=== PATIENT | male | born 1945 | race Caucasian/White ===

== ENCOUNTER → 2018-08-02 09:56 | Outpatient (CLI) | payer MEDICARE, OTHER, SELFPAY ==
[2018-08-02] VITALS (10 sets, daily range): BP systolic 90–135; BP diastolic 44–90; PULSE 60–70; RESP 13–25; TEMP 36.5; O2SAT 87–98; BMI 30.4
--- NOTE | 2018-08-02 | ASPIGT_PTH ---
PATIENT: KEY RIBERA Jr. LOC: [place] U#:[id number] AGE/SX: 80/M ROOM: RE08/02/[address]: Dr. River Ventura MD : 1945 BED: DIS: SPEC #: [id number] RECD: 08/02/18 13:07 STATUS: ODALYS FLETCHER #: [id number] ALEX: 08/02/18 00:[address]: River Ventura DEPT: SURGICAL PATHOLOGY RECD BY: Osvaldo Liu ENTERED: 08/02/18 13:08 SP TYPE: ASP RAD OTHR DR: Dr. Sid Jordan MD Tissues: Lung, NOS Procedures: FNA Specimen Adequacy Special Stain Group II Surgery Specimen Level IV Diff Quik Stain (control) Imprint (control) HEADER OPERATION: CT-guided right lung biopsy PRE-OP DIAGNOSIS: Mass TISSUE SUBMITTED: Right lower lobe, superior segment, CT-guided core biopsy MICROSCOPIC DIAGNOSIS Mass of right lower lobe, superior segment of lung, needle core biopsy: Invasive squamous cell carcinoma. See Comment. AM:berta 08/05/18 COMMENT The specimen is evaluated at the time of biopsy by Dr. Blackwood. Immediate Evaluation = Malignant cells present derived from non-small cell carcinoma. Immunohistochemistry ([id number]) supports the above diagnosis. The tumor cells stain strongly for CK5-6 and p40. Clinical correlation is suggested. Case has been reviewed in consultation with Dr. Blackwood who concurs with the above diagnosis. IDC:SJ MICROSCOPIC DESCRIPTION Slides are reviewed. GROSS DESCRIPTION Received is one container labeled with the patient's name and not further designated. The specimen consists of multiple irregular and somewhat elongated fragments of light jj soft tissue that in aggregate measure 0.2 x 0.1 x <0.1 cm. The specimen is totally submitted in one cassette. / AM:berta 08/02/18 TC:0 CPT: 80645, 32022, 69608 ADDENDUM ADDENDUM ADDENDUM 08/08/2018 13:48 ADDENDUM 08/08/2018 13:48 ADDENDUM 08/08/2018 13:48 ADDENDUM 08/08/2018 13:48 ADDENDUM 08/23/2018 13:00 ADDENDUM 08/08/2018 13:48 This case was reviewed and diagnosis discussed with Dr. Ventura on 08/08/18 who ordered a PDL-1 on the tissue block. PD-L1 (KEYTRUDA) IMMUNOHISTOCHEMISTRY ANALYSIS FROM [facility] INTERPRETATION: Low expression Tumor proportion score: 30% Please see complete report in e-chart or EMR for complete details
--- NOTE | 2018-08-02 | IMM_PTH ---
PATIENT: KEY RIBERA Jr. LOC: CT U#:[id number] AGE/SX: 80/M ROOM: RE08/02/[address]: Dr. River Ventura MD : 1945 BED: DIS: SPEC #: [id number] RECD: 08/05/18 10:31 STATUS: ODALYS REQ #: [id number] ALEX: 08/02/18 00:[address]: River Ventura DEPT: IMMUNOHISTOCHEMISTRY RECD BY: Tamara Frances ENTERED: 08/05/18 10:32 SP TYPE: IMMUNO OTHR DR: Dr. Sid Jordan MD Tissues: Lung, NOS Procedures: NAPSIN A (add) CEA (add) CK20 (add) CK5-6 (add) CK8 (add) TTF1 (add) 34BE12 (add) P40 (add) CK7 (initial) PHYSICIAN & INSTITUTION [place] [id number] SPECIMEN INFORMATION: Tissue Source: Right lower lobe, superior segment, CT-guided core biopsy Clinical Info: Lung mass Specimen Number: [id number] CPT code: 98699, 76022 x8 METHODOLOGY: Deparaffinized sections of prefer/formalin-fixed tissue or PAP/DQ stained slides are incubated with monoclonal/polyclonal antibodies/oligonucleotide probes. Localization is made via biotin free immunoperoxidase method. Appropriate controls are performed and reacted as expected. Results on target cell population are indicated in the following table: RESULTS: ANTIBODY / CLONE RESULT CK7 (OV-TL12/30) negative CK8 (26iskxZ42) positive CK20 (KS20.8) negative 34BE12 (34BE12) positive TTF-1 (8G7G3/1) negative Napsin A (Rabbit Polyclonal) negative CEA (11-7/TF-3HB-1) positive, focal P40 (BC28) positive CK5-6 (D5 & 1684) positive These tests were developed and their performance characteristics determined by [facility]. They may not have been cleared or approved by the U.S. Food and Drug Administration. The FDA has determined that such clearance or approval is not necessary. INTERPRETATION: Right lower lobe, superior segment, CT-guided core biopsy: Invasive squamous carcinoma. GRANT:berta 08/06/18 Case has been reviewed in consultation with Dr. Blackwood who concurs with the above diagnosis. IDC:GRANT
--- NOTE | 2018-08-02 10:08 | CT_ITS ---
PROCEDURE: CT GUIDED CORE NEEDLE BIOPSY OF A nodule in the superior segment of the right lower lobe LUNG LESION INDICATION: Male, 73 years old. Right lower lobe mass PHYSICIAN: Dr. Lokesh WARREN CONSENT: Written informed consent was obtained having explained the risks, benefits and alternatives in detail with the patient who accepted the risks and agreed to proceed. Laboratory review and clinical assessment was performed. CONSCIOUS SEDATION PROTOCOL: The Drugs used were: 2 mg Versed, IV., and 50 mcg Fentanyl, IV. The sedation time was: 15 minutes. Conscious sedation was started 11:15 AM and terminated 11:30 AM. The conscious sedation protocol was independently monitored. RADIATION DOSAGE (If Supplied By Facility): CTDIvol = ( 18.2 ) mGy, DLP = ( 510.81 ) mGycm Individualized dose optimization techniques were used for this CT. TECHNIQUE: The patient was placed in the supine position. A noncontrast CT was performed to localize the lesion in the superior segment of the right lower lobe . The skin surface was prepped and draped in a sterile fashion. 1% lidocaine was used for local anesthesia. Using CT guidance, a 20-gauge coaxial biopsy device was advanced to the periphery of the lesion. A total of 4 core specimens were obtained. The specimens were placed in a formalin solution. A post procedure CT demonstrated no adverse sequelae or pneumothorax. The patient tolerated the procedure well without adverse event. A negative biopsy does not exclude malignancy. Further imaging or clinical followup based on patient condition and degree of clinical suspicion for malignancy. Suggest rebiopsy, if biopsy results do not match with clinical scenario. CT/Biopsy/Inj or Needle Placement IMPRESSION: 1. CT directed core needle biopsy of the right lower lobe lung lesion using CT image guidance with image documentation as described. Pathology results are pending. 2. Conscious Sedation protocol utilized with independent monitoring. Electronically Signed: Rian Campa MD at 12:42 EST Tel [phone], Service support ,
[2018-08-02 10:36] LABS: Hemoglobin 16.7 g/dl (13.0-16.5); Mean Corp Hgb Conc 33.4 g/gl (32-36); Mean Corpuscular Hgb 32.7 pg (27.0-32.0); Mean Platelet Vol. 9.9 fl (6.2-12.0); Platelet Count 179 K/mm3 (150-450); RBC Distribution Width CV 13.5 % (11.6-14.6); RBC Distribution Width SD 48.1 fl (35.1-43.9); White Blood Count 6.6 K/mm3 (4.4-11.0)
[2018-08-02 10:37] LABS: Scan Indicated on CBC? Y/N NO
[2018-08-02 10:43] LABS: Prothrombin Time (Protime)PT. 12.7 SECONDS (11.7-14.9)
[2018-08-02 10:44] LABS: Partial Thromboplast Time 27.1 Seconds (24.1-36.2)
[2018-08-02] MEDS: Midazolam 2 MG/2 ML Syringe IV (11:13)
[2018-08-02] MEDS: fentaNYL 100 MCG/2 ML Ampul IV (11:14)
--- NOTE | 2018-08-02 11:33 | RAD_ITS ---
STUDY: X-RAY CHEST REASON FOR EXAM: Male, 73 years old. Immediate postright lung biopsy. TECHNIQUE: AP inspiration and expiration views. COMPARISON: None. FINDINGS: The patient is status post right lung biopsy. There is no evidence of pneumothorax. RAD/Chest Insp/Exp 2 View IMPRESSION: Status post right lung biopsy. There is no evidence of pneumothorax. Electronically Signed: Rian Campa MD at 12:34 EST Tel [phone], Service support ,
--- NOTE | 2018-08-02 13:28 | RAD_ITS ---
STUDY: X-RAY CHEST REASON FOR EXAM: Male, 73 years old. Status post lung biopsy earlier today TECHNIQUE: Inspiratory and expiratory frontal views COMPARISON: None. FINDINGS: Surgical clips project over the left apex. Lungs are hyperexpanded with mild fibrotic or atelectatic changes in the lung bases. The nodule in the medial right lower lobe mass earlier today is not clearly identified. No pneumothorax demonstrated. Normal size heart. Normal mediastinum and anil. Normal visualized pulmonary arteries. Thoracic aortic stent graft noted. Normal visualized thoracic spine. Normal visualized ribs, clavicles, and shoulders. There is no demonstrated abnormality of the visualized soft tissue structures of the upper abdomen. RAD/Chest Insp/Exp 2 View IMPRESSION: 1. No pneumothorax following biopsy of medial right lower lobe nodule. Electronically Signed: Jitendra Dorado MD at 16:56 EST , Service support ,
== END ==
PROVIDERS: Family Provider Family Medicine; PCP Family Medicine; Referring Provider Internal Medicine Hematology & Oncology; Visit Provider Internal Medicine Hematology & Oncology
DX: C34.31 Malignant neoplasm of lower lobe, right bronchus or lung (principal); Z79.01 Long term (current) use of anticoagulants
CPT/HCPCS: 32405; 36415; 71046; 77012; 85027; 85610; 85730; 88172; 88305; 88313; 88341; 88342; 99156; 99157; J7040; A4216

== ENCOUNTER → 2020-10-14 09:50 | Outpatient (CLI) | payer MEDICARE, OTHER, SELFPAY ==
[2018-08-02 10:26] VITALS: BMI 30.4
--- NOTE | 2020-10-14 09:55 | VDUE_ITS ---
Reason For Study: Pre op testing Right Arm Left Arm Right Cephalic Vein at the wrist measures Left Cephalic Vein at the wrist measures 0.18 x 0.17 cm. 0.24 x 0.24 cm. Right Cephalic Vein in the forearm measures Left Cephalic Vein in the forearm measures 0.27 x 0.28 cm. 0.33 x 0.33 cm. Right Cephalic Vein below antecub measures Left Cephalic Vein below antecub measures 0.30 x 0.29 cm. 0.28 x 0.29 cm. Right Cephalic Vein above antecub measures Left Cephalic Vein above antecub measures 0.28 x 0.27 cm. 0.48 x 0.49 cm. Right Cephalic Vein mid bicep measures 0.34 Left Cephalic Vein at mid bicep measures x 0.33 cm. 0.50 x 0.48 cm. Right Cephalic Vein at the shoulder measures Left Cephalic Vein at the shoulder measures 0.35 x 0.35 cm. 0.47 x 0.47 cm. Right Basilic Vein at the origin measures Basilic vein at origin measures 0.41 x 0.40 0.46 x 0.45 cm. cm. Right Basilic Vein mid bicep measures 0.47 x Basilic vein at bicep measures 0.28 x 0.31 0.49 cm. cm. Right Basilic Vein above antecub measures Basilic vein above antecub measures 0.33 x 0.28 x 0.26 cm. 0.32 cm. Branch mid basilic vein measures 0.17 x 0.19 Left Brachial artery measures 0.49 x 0.48 cm cm. with a velocity of 96.1 cm/sec. Right Brachial artery measures 0.56 x 0.53 Left Radial artery measures 0.13 x 0.13 cm cm with a velocity of 97.9 cm/sec. with a velocity of 35.1 cm/sec. Right Radial artery measures 0.15 x 0.15 cm with a velocity of 42.4 cm/sec. Interpretation Summary Patent and compressible bilateral upper extremity cephalic and basilic veins with dimensions as noted Small bilateral radial arteries Normal diameter flow bilateral brachial arteries Ordering Physician: Nikolay Chavarria Referring Physician: Sid Jordan Performed By: Anaya Saravia RVT ?
== END ==
PROVIDERS: PCP Family Medicine; Referring Provider Surgery; Visit Provider Surgery
DX: Z01.818 Encounter for other preprocedural examination (principal); N18.9 Chronic kidney disease, unspecified; M79.632 Pain in left forearm; M79.631 Pain in right forearm
CPT/HCPCS: 93970

== ENCOUNTER 2020-11-17 06:04 | Day surgery (SDC) | payer MEDICARE, OTHER, SELFPAY ==
[2020-10-19 14:23] VITALS: BMI 32.0
--- NOTE | 2020-11-12 10:33 | EKG12_ITS ---
Test Reason : PRE OP Blood Pressure : / mmHG Vent. Rate : 069 BPM Atrial Rate : 069 BPM P-R Int : 178 ms QRS Dur : 072 ms QT Int : 402 ms P-R-T Axes : 047 043 076 degrees QTc Int : 430 ms Normal sinus rhythm Normal ECG Confirmed by XIAO WARREN, ARTURO ([id number]), city editor CHEYENNE PALAFOX ([id number]) on 11/15/2020 9:56:42 AM Referred By: Nikolay Chavarria Confirmed By:PARISA HAGEN MD
[2020-11-12 11:11] LABS: Hematocrit 39.1 % (40-54); Hemoglobin 12.2 g/dL (13.0-16.5); Mean Corp Hgb Conc 31.2 g/dL (32-36); Mean Corpuscular Hgb 31.2 pg (27.0-32.0); Mean Platelet Vol. 9.6 fl (6.2-12.0); Platelet Count 260 K/mm3 (150-450); RBC Distribution Width CV 14.2 % (11.6-14.6); RBC Distribution Width SD 51.7 fl (35.1-43.9); Red Blood Count 3.91 M/mm3 (4.6-6.2); White Blood Count 8.5 K/mm3 (4.4-11.0)
[2020-11-12 11:28] LABS: Anion Gap 5 (5-15); BUN 49 mg/dL (7-18); BUN/Creat Ratio 12.3 RATIO (10-20); Calcium,Total 9.3 mg/dL (8.5-10.1); Chloride 107 mmol/L (98-107); Creatinine, Serum 3.98 mg/dL (0.70-1.30); EST Glomerular Filtration Rate 16 mL/min (>60); Est Glom Filt Rate - Afr Amer 19 mL/min (>60); Glucose 102 mg/dL (74-106); Potassium 4.2 mmol/L (3.5-5.1); Sodium Level 139 mmol/L (136-145)
[2020-11-17] VITALS (7 sets, daily range): BP systolic 105–138; BP diastolic 53–75; PULSE 71–76; RESP 16; TEMP 36.4–37; O2SAT 95–100; BMI 30.4
--- NOTE | 2020-11-17 06:14 | HP.PCM_ITS ---
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 Is patient in pain?: No Allergies erythromycin base Allergy (Mild, Verified 10/19/20 14:26) rash lisinopril Allergy (Mild, Verified 10/19/20 14:26) rash Penicillins [PCN] Allergy (Verified 08/01/18 12:47) Angioedema Iodinated Contrast Media [CONTRASTS] Adverse Reaction (Verified 08/01/18 12:47) Nausea/Vom/Diarrhea Medications allopurinol 100 mg tablet 100 mg PO DAILY tablet 10/19/20 [History Confirmed 10/19/20] clonidine 0.2 mg/24 hr weekly transdermal patch 2 patch TD QWEEK PRN each 10/19/20 [History Confirmed 10/19/20] clonidine HCl 0.2 mg tablet 0.2 mg PO TID tablet 10/19/20 [History Confirmed 10/19/20] hydralazine 50 mg tablet 100 mg PO TID tablet 10/19/20 [History Confirmed 10/19/20] lactobacillus combination no.8 3 billion cell capsule 3,000 mmu cells PO DAILY 10/19/20 [History Confirmed 10/19/20] levothyroxine 75 mcg tablet 75 mcg PO DAILY tablet 10/19/20 [History Confirmed 10/19/20] metoprolol succinate 50 mg tablet,extended release 24 hr 50 mg PO BID tablet 10/19/20 [History Confirmed 10/19/20] omega-3 fatty acids 1,000 mg capsule 1,000 mg PO DAILY 10/19/20 [History Confirmed 10/19/20] ropinirole 0.5 mg tablet 0.5 mg PO QHS tablet 10/19/20 [History Confirmed 10/19/20] tamsulosin 0.4 mg capsule 0.4 mg PO DAILY cap 10/19/20 [History Confirmed 10/19/20] vitamins A,C,J-dnyq-ltkkab 7,160 unit-113 mg-100 unit tablet 2 tablet PO BID 10/19/20 [History Confirmed 10/19/20] [facility] Medical History (Updated 10/19/20 @ 14:[address] Nikolay Chavarria MD) Chronic renal failure, stage 4 (severe) (Chronic) Colon polyps (Acute) Diabetes mellitus (Acute) Gout (Acute) Hemorrhoids (Acute) History of carotid artery stenosis (Acute) History of lung cancer (Acute) History of stroke (Acute) COPD (chronic obstructive pulmonary disease) (Chronic) HTN (hypertension) (Chronic) Renal failure, chronic (Chronic) Surgical History (Updated 10/19/20 @ 14:23 by Susannah Berry) H/O heart artery stent (Acute) History of AAA (abdominal aortic aneurysm) repair (Acute) History of colonoscopy (Acute) History of common carotid artery stent placement (Acute) History of lobectomy of lung (Acute) Family History (Updated 10/19/20 @ 14:23 by Susannah Berry) Sister Diabetes Breast cancer Cancer bladder and female parts Father Heart disease Myocardial infarction Social History (Updated 10/19/20 @ 14:[address] Nikolay Chavarria MD) Smoking Status: Former smoker HPI HPI HPI: KEY RIBERA, is a 75 M who presents to the office today for surgical consultation regarding creation of arteriovenous hemodialysis fistula. The patient is referred by Dr. Snyder and a written copy my surgical consult recommendations will return to him 75-year-old gentleman. Sounds like he has had a very complicated life. He has been treated for lung cancer and is survived. Fairly he had a severe pneumonia then type of abdominal vascular reconstruction as well as thoracic. He is right arm dominant. On October 14, 2020 at the [facility] he had bilateral upper extremity vein mapping. It demonstrates quite small radial arteries bilaterally. The patient is diabetic. Because of his renal function he is not on oral hypoglycemic agents. He is not on insulin. He has had a previous exposure to agent orange He does have variable hypertension that can be difficult to treat [facility] [address] [place] [address] Saphenous Vein Mapping, Bilat 10/14/20 1006 MR#: [id number]:[id number] Name: KEY RIBERA Jr.Rep #:[id number] : 1945 75From: Nikolay Chavarria MD Attending Dr: Dr. Nikolay Chavarria, MDStatus: REG CLI Ordering Dr: Nikolay Chavarria MDDate: 10/14/20 Location:CVSSex: Admitted: Reason For Study: Pre op testing Right Arm Left Arm Right Cephalic Vein at the wrist measures Left Cephalic Vein at the wrist measures 0.18 x 0.17 cm. .24 x 0.24 cm. Right Cephalic Vein in the forearm measures Left Cephalic Vein in the forearm measures 0.27 x 0.28 cm. 0.33 x 0.33 cm. Right Cephalic Vein below antecub measures Left Cephalic Vein below antecub measures 0.30 x 0.29 cm. 0.28 x 0.29 cm. Right Cephalic Vein above antecub measures Left Cephalic Vein above antecub measures 0.28 x 0.27 cm. 0.48 x 0.49 cm. Right Cephalic Vein mid bicep measures 0.34 Left Cephalic Vein at mid bicep measures x 0.33 cm. 0.50 x 0.48 cm. Right Cephalic Vein at the shoulder measures Left Cephalic Vein at the shoulder measures 0.35 x 0.35 cm. 0.47 x 0.47 cm. Right Basilic Vein at the origin measures Basilic vein at origin measures 0.41 x 0.40 0.46 x 0.45 cm. cm. Right Basilic Vein mid bicep measures 0.47 x Basilic vein at bicep measures 0.28 x 0.31 0.49 cm. cm. Right Basilic Vein above antecub measures Basilic vein above antecub measures 0.33 x 0.28 x 0.26 cm. 0.32 cm. Branch mid basilic vein measures 0.17 x 0.19 Left Brachial artery measures 0.49 x 0.48 cm cm. with a velocity of 96.1 cm/sec. Right Brachial artery measures 0.56 x 0.53 Left Radial artery measures 0.13 x 0.13 cm cm with a velocity of 97.9 cm/sec. with a velocity of 35.1 cm/sec. Right Radial artery measures 0.15 x 0.15 cm with a velocity of 42.4 cm/sec. Interpretation Summary Patent and compressible bilateral upper extremity cephalic and basilic veins with dimensions as noted Small bilateral radial arteries Normal diameter flow bilateral brachial arteries Ordering Physician: Nikolay Chavarria Referring Physician: Sid Jordan Performed By: Anaya Saravia RVT ? 10/14/20 1310 Date HPI HPI HPI: KEY RIBERA, is a 75 M who presents to the office today for ROS General General: Yes fatigue; no weight change, appetite, colon cancer, breast cancer or weakness Additional Details: lung cancer HEENT HEENT: Yes eye surgery; no difficulty swallowing, eye injury, swollen glands or hoarseness Endo Endocrine: Yes diabetes mellitus; no thyroid disease, thyroid cancer, Hair loss, heat intolerance or cold intolerance Musc Musculoskeletal: Yes gout; no back problems, arthritis, rheumatoid arthritis or joint pain Cardio Cardiovascular: Yes high blood pressure and heart stent; no murmur, pacemaker, heart disease, atrial fibrillation, heart attack, palpitations, shortness of breat with exertion or chest pain Psych Psychiatric: No depression, anxiety or hearing voices Resp Respiratory: Yes shortness of breath, No sleep apnea, No cough, Yes COPD, No asthma, No emphysema, No wheezing Gastro Gastrointestinal: No abdominal pain, No nausea or vomiting, No diarrhea, Yes constipation, No blood in stool, No acid reflux, Yes hemorrhoids, No ulcers, No gallbladder problem, No black,tarry stools Demetrius Hematologic: No blood thinners, No blood disorders, No bleeding, No anemia, No blood clots Neuro Neurologic: No weakness Exam Const General: cooperative, comfortable, no acute distress Nutritional Appearance: overweight Orientation: alert, awake [facility] Head: normal to inspection Eyes General: appearance normal, both eyes and all related structures Resp Auscultation: clear to auscultation bilaterally Cardio Rate: regular rate Rhythm: regular rhythm Heart Sounds: no murmurs GI Palpation: soft Other: Overweight Skin General: no rashes or lesions noted Neuro Cognition: normal cognition Extrem Other: Left upper extremity has a very poor radial pulse. The cephalic vein of the forearm is patent but of smaller diameter. The cephalic vein of the left upper arm is of appropriate depth and diameter. There is a generous 3+ left brachial pulse Psych Affect: normal affect Assessment & Plan Problems 1. Chronic renal failure, stage 4 (severe) N18.4 Plan I propose for the patient a left upper arm brachiocephalic arteriovenous hemodialysis fistula creation. I do not believe that his radial artery will well support flow. Both the brachial artery and cephalic vein are of appropriate dimension. The cephalic vein actually crosses the antecubital space for short distance. I have discussed with him the technique, benefit, risk, alternatives. He has had an opportunity to ask and have questions answered. He is additionally aware of the potential of an arterial steal. We will schedule and proceed at his discretion. I very much appreciate the kind opportunity of assisting with his surgical care. Copy: Dr. Sid Jordan and Dr. Ron Chavarria M.D., F.A.C.S. Coding Level of Care Code 78127 Diagnoses Chronic renal failure, stage 4 (severe) N18. I have re-examined the patient. There are no clinical changes since date of exam. Assessment & Plan Assessment/Plan (1) Chronic renal failure, stage 4 (severe): Status: Chronic Code(s): N18.4 - Chronic kidney disease, stage 4 (severe) Plan: Left upper extremity brachiocephalic arteriovenous hemodialysis fistula creation
[2020-11-17] MEDS: Lactated Ringers 1,000 ML 100 ML IV (06:50)
[2020-11-17 07:31] LABS: Bedside Glucose 121 mg/dL (70-110)
--- NOTE | 2020-11-17 08:38 | EX.PCM.DISCH ---
Discharge Instructions Outpatient Procedure Reason For Visit: L AV FISTULA CREATION Follow Up Care Test Results: Test results from this visit will be discussed in further detail at your follow-up appointment, if applicable. Elevate your left arm for comfort. You may remove the dressing in 2 days. Leave the Steri-Strips in place for 1 week. Exercise your left hand with a stress ball. No lifting more than 10 pounds. No driving for 1 day. Please call the office for follow-up appointment in approximately 10 days. [phone] Discharge Plan Admission Attending Provider: Nikolay Chavarria Primary Care Provider: Sid Jordan Discharge Orders/Prescriptions Prescriptions: New hydrocodone-acetaminophen 5-325 mg tablet 1 tab PO Q6H PRN (Reason: pain) 2 Days Qty: 5 RF: 0 No Action metoprolol succinate 50 mg tablet extended release 24 hr 50 mg PO BID RF: 0 levothyroxine 75 mcg tablet 75 mcg PO DAILY RF: 0 clonidine 0.2 mg/24 hr patch weekly 2 patch TD MO RF: 0 hydralazine 50 mg tablet 100 mg PO TID RF: 0 clonidine HCl 0.2 mg tablet 0.2 mg PO TID RF: 0 allopurinol 100 mg tablet 100 mg PO DAILY RF: 0 tamsulosin 0.4 mg capsule 0.4 mg PO DAILY RF: 0 ropinirole 0.5 mg tablet 0.5 mg PO QHS RF: 0 omega-3 fatty acids [Fish Oil Concentrate] 1,000 mg capsule 1,000 mg PO DAILY RF: 0 Adult Probiotic 3 billion cell capsule 3,000 mmu cells PO QODAY RF: 0 PreserVision AREDS 7,160-113-100 capl-ui-rnvf tablet 1 tab PO DAILY RF: 0 albuterol sulfate 1 PUFF inhaler 1 - 2 puff INHALATION Q4H PRN PRN (Reason: Sob &/Or Wheezing) RF: 0 tiotropium bromide 18 MCG capsule, w/inhalation device 1 puff IH DAILY RF: 0 budesonide-formoterol 1 INHALER inhaler 2 puff INHALATION BID RF: 0
--- NOTE | 2020-11-17 08:40 | OP.PCM_ITS ---
Problems Associated Problem List Diagnoses (1) Chronic renal failure, stage 4 (severe): Report of Operation Date of Procedure: 11/17/20 Pre-Operative Diagnosis: Stage IV chronic renal insufficiency Post-Operative Diagnosis: Same Surgery/Procedure Performed:: Left upper extremity brachiocephalic arteriovenous hemodialysis fistula creation Description of Surgical Findings:: Timeout and informed consent was obtained. 75-year-old gentleman was taken the operating placed on the table underwent monitored anesthesia care. Clean procedure no antibiotics required. The left extremity sterilely prepped and draped after ultrasound mapping. 1% lidocaine mixed 50-50 with 0.5% Marcaine was used as a local anesthetic. A total of 13 cc was used. Local was instilled and oblique incision was made just proximal to the antecubital crease sharp blunt dissection was used to identify the cephalic vein it was circumferentially dissected free distally there was a small branch point. Then sharp blunt dissection was used to identify the brachial artery. The patient received 8000 units of heparin. The cephalic vein was secured at the antecubital space with hemoclips. This was at a branch point the vein was spatulated irrigated with heparinized saline bulldog clamp was applied. Peripheral vascular clamps were placed on the brachial artery a 11 blade was used to make an arteriotomy which was extended with Williamson scissors. A end-to-side venous to arterial anastomosis was created with a running 7-0 Prolene. Excellent anastomosis achieved with immediate pulse thrill and bruit within the fistula. The hand was inspected. It appeared to be pink and viable. There was a 1+ radial pulse. The wound was closed with a deep layer of interrupted 3-0 Vicryl. The skin edges were approximated with a running subcuticular 4-0 Monocryl. Steri-Strips Telfa OpSite dressings applied. Sponge and instrument and needle counts were reported the surgeon to be correct. Specimens none. Blood loss minimal. Drains none. The patient was taken to the recovery area in satisfactory addition without apparent complication Nikolay Chavarria M.D., F.A.C.S. agricultural consultant: None Type of Anesthesia: Local MAC Anesthesiologist: Armando Vance VTE Documentation VTE Present on Admission: No VTE Mechan Device Prophylaxis: SCD's
[2020-11-17] MEDS: Heparin Injection (Vial) 5,000 UNIT/ML VIAL 5000 UNIT (08:41)
[2020-11-17] MEDS: Bupivacaine Mpf 0.5% 30 ML VIAL (08:42)
[2020-11-17] MEDS: Lidocaine 1% (30 ml sdv) 30 ML Vial (08:42)
--- NOTE | 2020-11-17 08:56 | EX.PCM.DISCH ---
Discharge Instructions Outpatient Procedure Reason For Visit: L AV FISTULA CREATION Procedure: Fistula Diet Discharge Diet: Renal Diet Activity Discharge Activity: May Not Drive (for 2-3 days or while taking narcotic pain medications.), May Shower and May Take a Tub Bath (in 5 days.) Lifting Restrictions: 5 pounds Keep extremity elevated above heart level: - (Keep arm elevated above the heart level for 3 days.) Dressing / Incision Call your doctor if your incision/area has: Continuous Slow Oozing, Sudden Increased Bleeding (apply pressure and call your doctor.), Increased Pain/ Swelling, Increased Redness and Foul Smelling Discharge Call your doctor if you observe: Fever of 101 or Higher Suture Line Care: Avoid Pulling/Pushing and Avoid Pinching/Bending Cleanse incision/area with: Keep Dressing Clean & Dry Additional Dressing/Incision Instructions:: Change or remove dressing in one day. May protect with a gauze bandaid. Follow Up Care Please Follow Up With: Nikolay Chavarria MD When: Call [phone] to make an appointment for suture removal and follow up in 1 week. Test Results: Test results from this visit will be discussed in further detail at your follow-up appointment, if applicable. Discharge Plan Admission Attending Provider: Nikolay Chavarria Primary Care Provider: Sid Jordan Discharge Orders/Prescriptions Prescriptions: New hydrocodone-acetaminophen 5-325 mg tablet 1 tab PO Q6H PRN (Reason: pain) 2 Days Qty: 5 RF: 0 No Action metoprolol succinate 50 mg tablet extended release 24 hr 50 mg PO BID RF: 0 levothyroxine 75 mcg tablet 75 mcg PO DAILY RF: 0 clonidine 0.2 mg/24 hr patch weekly 2 patch TD MO RF: 0 hydralazine 50 mg tablet 100 mg PO TID RF: 0 clonidine HCl 0.2 mg tablet 0.2 mg PO TID RF: 0 allopurinol 100 mg tablet 100 mg PO DAILY RF: 0 tamsulosin 0.4 mg capsule 0.4 mg PO DAILY RF: 0 ropinirole 0.5 mg tablet 0.5 mg PO QHS RF: 0 omega-3 fatty acids [Fish Oil Concentrate] 1,000 mg capsule 1,000 mg PO DAILY RF: 0 Adult Probiotic 3 billion cell capsule 3,000 mmu cells PO QODAY RF: 0 PreserVision AREDS [id number],[id number] tablet 1 tab PO DAILY RF: 0 albuterol sulfate 1 PUFF inhaler 1 - 2 puff INHALATION Q4H PRN PRN (Reason: Sob &/Or Wheezing) RF: 0 tiotropium bromide 18 MCG capsule, w/inhalation device 1 puff IH DAILY RF: 0 budesonide-formoterol 1 INHALER inhaler 2 puff INHALATION BID RF: 0
== END 2020-11-17 11:20 ==
LOC: SDC 06:04 → AC 06:04
PROVIDERS: PCP Family Medicine; Referring Provider Surgery; Visit Provider Surgery
PROC: (CPT 36821; principal; 2020-11-17 07:15)
DX: Z45.2 Encounter for adjustment and management of vascular access device (principal); N18.4 Chronic kidney disease, stage 4 (severe); E11.22 Type 2 diabetes mellitus with diabetic chronic kidney disease; I12.9 Hypertensive chronic kidney disease with stage 1 through stage 4 chronic kidney disease, or unspecified chronic kidney disease; J44.9 Chronic obstructive pulmonary disease, unspecified; Z86.73 Personal history of transient ischemic attack (TIA), and cerebral infarction without residual deficits; Z85.118 Personal history of other malignant neoplasm of bronchus and lung; Z79.899 Other long term (current) drug therapy; Z87.891 Personal history of nicotine dependence; M10.9 Gout, unspecified
CPT/HCPCS: 36821; 36415; 80048; 82962; 85027; 93005; J7120